=== PATIENT | male | born 1945 | race Caucasian/White ===

== ENCOUNTER → 2017-05-08 | Outpatient (CLI) | payer OTHER, MEDICARE ==
[~2017-05-08] MED LIST: ASCO500T3 PO; ASPI81TA28 PO; ATOR10TA82 PO; CARV12.52 PO; CETI10TA84 PO; Iron PO; OPTIRAY 320 IV PRN; OXYC-57 PO; THEO300T14 PO; WARF-246 PO; WARF5TAB90 PO
--- NOTE | 2017-05-08 09:27 | DIAGNOSTIC IMAGING REPORT ---
CT SOFT TISSUE NECK WITH CT DOSE: 350.83 mGy.cm CLINICAL HISTORY: HX OF BASE OF TONGUE CA TECHNIQUE: Helical images were acquired during intravenous administration of 92 cc of Optiray 320. COMPARISON STUDY: Outside study performed 07/31/2016 FINDINGS: There is pulmonary emphysema. No suspicious pulmonary apical nodules are visualized. No thyroid masses are visualized. No salivary gland masses are visualized. There are no pathologically enlarged cervical lymph nodes. No necrotic nodes are evident. There are no fluid collections suspicious for abscess. There is no evidence of airway compromise. There is asymmetry of the base the tongue. This is likely secondary to treated neoplasm. This remains unchanged from the preceding examination. There is moderate right maxillary sinus mucosal thickening. IMPRESSION: 1. Stable tongue base asymmetry. This may be secondary to treated neoplasm. The findings remain unchanged. A follow-up PET/CT scan might be of benefit to determine whether this tissue is metabolically active 2. No new or enlarging masses are visualized 3. No evidence of pathologic adenopathy. Electronically signed by: Tony Lora M.D. 05/08/2017 9:25 AM Dictated Date/Time: 05/08/2017 9:08 AM
== END | disposition home or self-care (01) ==
LOC: C.CTS 08:53
PROVIDERS: ATTEND Otolaryngology
DX: C01 Malignant neoplasm of base of tongue (principal)

== ENCOUNTER → 2017-05-15 | Outpatient (CLI) | payer OTHER, MEDICARE ==
[~2017-05-15] MED LIST changes: -ATOR10TA82 PO; +ATOR10TA88 PO; -OPTIRAY 320 IV PRN; -THEO300T14 PO
[2017-05-15 12:52] VITALS: BP 120/76; PULSE 89; TEMP 36.5; O2SAT 95
--- NOTE | 2017-05-15 15:52 | Radiation Oncology Follow-Up ---
Radiation Oncology Follow-Up Date of Visit May 15, 2017. (Jenn Salamanca PA-C) Reason For Visit Nine-month follow-up (Jenn Salamanca PA-C) Radiation Completion Date finished 09-07-2015 (Jenn Salamanca PA-C) Diagnosis (1) Cancer of base of tongue Status: Resolved Onset Date: 06/01/2015 Stage: lll Permanent Comment: STAGING: Oropharynx, right base of tongue, SCC, p16 negative , T2N1M0, stage III Status post completion of radiation therapy 09/07/2015 received 6996 cGy Failure to thrive post treatment feeding tube placed Course Plan Name [employer] Start Date Stop Date Elapsed Days # TX Daily Dose (cGy) Total Dose (cGy) C1- H&N VMAT 3-arcs 6X 07/21/2015 09/07/2015 49 33 212* 6996* Last Edited By: Cheko Chavez on Aug 16, 2016 14:13 (Jenn Salamanca PA-C) History of Present Illness Mr. Monzon is a 70-year-old male with a [id number]-[id number] smoking history who recently presented with some hoarseness of his throat discomfort in the right tongue. He was eventually referred to Dr. Aguayo who did an examination which revealed a mass at the right base of tongue extending to the right tonsil. He did perform a biopsy which confirmed squamous cell carcinoma. A CT neck was performed on 04/16/2015 which showed a 3.5 cm mass in the right base of tongue as well as a 1 cm right level II lymph node. The patient was subsequently referred to Dr. Baca at [facility]. Dr. Baca did take the patient to the operating room for direct laryngoscopy with multiple biopsies. On examination, Dr. Baca found submucosal nodule on the right base of tongue extending to the midline and laterally onto the tonsillar fossa fossa as well as extending to the right side of vallecula and also there was extension into the right oral tongue. 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 This procedure was performed on 06/01/2015. He did subsequently have a PET CT scan on 06/21/2015 which did show an intensely FDG avid mass at the right base of tongue involving the right pharynx and right soft palate as well as an avidly intense right level IIb lymph node. There was no evidence of metastatic disease on the PET/CT scan. The patient was subsequently referred for definitive chemoradiation therapy. The patient was seen by Dr. Diggs who plans to deliver cisplatinum chemotherapy. He received combined radiation and chemotherapy. Radiation was completed 2014. He received 6906 cGy. He unfortunately developed failure to thrive. He was admitted from 09/15/2015 to 09/18/2015. A PEG tube was placed. He steadily improved and this was then removed. (Jenn Salamanca PA-C) Interim History He is been doing well over the past 9 months. His appetite is good and weight is stable. He does continue to have difficulty with taste. He feels that he has minimal ability to taste foods. He is intolerant to any spicy foods. Catch -up, mustard, and tomato sauce caused burning of the tongue. He has xerostomia. This is mostly noted during the day. He does not have difficulty with saliva at night. He has seen Dr. Baca in follow-up. He had him complete a CT scan on 05/08/2017. This showed stable tongue-based asymmetry. This may be secondary to treated neoplasm. The findings remain unchanged. Follow-up PET/CT scan might be of benefit to determine whether this tissue is metabolically active. No new or enlarging masses are visualized. No evidence of pathologic adenopathy. He was seen and examined by Dr. Baca 2016 and no recurrence was noted on examination. (Jenn Salamanca PA-C) Allergies Coded Allergies: No Known Allergies (Unverified , 04/11/16) Home Medications Scheduled Aspirin (Aspirin Ec), 81 MG PO QAM Atorvastatin (Lipitor), 10 MG PO NOON Carvedilol (Coreg), 12.5 TAB PO BID Warfarin Sodium (Warfarin Sodium), 10 MG PO 5XWK Warfarin Sodium (Coumadin), 1 TAB PO 2XWK Scheduled PRN Cetirizine (Zyrtec), 10 MG PO DAILY PRN for Nasal Congestion Review of Systems Gastrointestinal: Symptoms: WNL GI Comments: Gets full faster with smaller amounts of foods; Oral: Symptoms: Scant Saliva/Dry Mouth Other Oral Symptoms: "has trouble eating certain meats and breads " Respiratory: Symptoms: WNL Other Respiratory: Frequent throat clearing at times d/t excessive saliva; Urinary: Symptoms: Nocturia Comments: nocturia times 1 Skin: Symptoms: No Problems (Jenn Salamanca PA-C) Physical Exam Vital Signs Date Time Temp Pulse Resp B/P (MAP) Pulse Ox O2 Delivery O2 Flow Rate FiO2 05/15/17 12:52 36.5 89 18 120/76 95 Pain: Pain Onset: 1 - 2 weeks Side: Bilateral Pain Location: gums Patient Pain Scale: 0 - 10 Initial Pain Intensity: 0.0 Pain Description: Soreness Additional Comments: gets worse in the afternoon Fatigue: None General Appearance: no apparent distress Eyes: normal inspection, EOMI ENT: normal ENT inspection, hearing grossly normal, pharynx normal, + pertinent finding (there are no visible lesions of the tongue. There are no changes of the base of the tongue or buccal mucosa. Mild trismus.) Neck: no adenopathy, thyroid normal Respiratory/Chest: lungs clear, no respiratory distress, no accessory muscle use Cardiovascular: regular rate, rhythm, no gallop, no murmur Extremities: no pedal edema Neurologic/Psychiatric: no motor/sensory deficits, alert, normal mood/affect Skin: warm/dry (Jenn Salamanca PA-C) Additional Studies As reviewed above. (Jenn Salamanca PA-C) Assessment & Plan Plan: Patient was seen and examined by Dr. Chavez. No continue follow-up with his primary care physician, Dr. Baca, and medical oncology. He is going to be seeing Dr. Sears on May 28. He does have a port. He plans to discuss having this removed with Dr. Sears. He'll be seeing Dr. Baca in July. We asked him to return to our office in October. He may call if he has any questions or concerns in the interim. (Jenn Salamanca PA-C) I agree with note created by Jenn Salamanca PA-C. I reviewed the patient's chart and information with her. I have examined and evaluated the patient. I reviewed relevant clinical information and answered the patient's and/or family' s questions. (Veeral. Chavez MD) Total Time In Follow-Up I spent 20 minutes speaking to the patient and performing examination. He has been 15 minutes reviewing information in completing this note. (Jenn Salamanca PA-C) I spent 15 minutes examining and counseling the patient. (Veeral. Chavez MD) Copy To Robert Baca M.D.; Abimael Sears MD; Gerry Guaman D.O.
== END | disposition home or self-care (01) ==
LOC: C.ONC 12:36
PROVIDERS: ATTEND Physician Assistant Medical
DX: Z08 Encounter for follow-up examination after completed treatment for malignant neoplasm (principal); Z92.3 Personal history of irradiation; Z85.810 Personal history of malignant neoplasm of tongue

== ENCOUNTER → 2017-06-25 | Day surgery (SDC) | payer OTHER, MEDICARE ==
[~2017-06-25] VITALS: Ht 172.7 cm; Wt 79.5 kg
[~2017-06-25] MED LIST changes: -ASCO500T3 PO; +CEFAZOLIN 1000MG/55 ML D5W IV SCH; +FENTANYL CITRATE INJ 50 MCG/1 ML 2 ML VIAL IV ONE; +FENTANYL CITRATE INJ 50 MCG/1 ML 2 ML VIAL ONE; -Iron PO; +LIDOCAINE HCL 1% 20 ML VIAL INJ ONE; +LIDOCAINE HCL 1% 20 ML VIAL ONE; +MIDAZOLAM HCL 1 MG/ML 2ML VIAL IV ONE; +MIDAZOLAM HCL 1 MG/ML 2ML VIAL ONE; +SODIUM CHLORIDE 0.9% 1000ML IV SCH
[2017-06-25 06:34] VITALS: BP 139/81; PULSE 83; TEMP 36.7; O2SAT 97; Ht 172.7 cm; Wt 79.5 kg
[2017-06-25 06:50] LABS: INR 3.2 (0.9-1.1); PARTIAL THROMBOPLASTIN RATIO 1.5; PROTHROMBIN TIME (PATIENT) 35.4 SECONDS (9.0-12.0)
[2017-06-25 07:37] VITALS: BP 139/81; PULSE 83; TEMP 36.7; O2SAT 97
--- NOTE | 2017-06-25 07:39 | History and Physical ---
History & Physical Date of Service Jun 25, 2017. History & Physical Chief Complaint: Tongue cancer, post port insertion History of Present Illness The patient is a 70 year old male with tongue cancer who had an insertion of an infusaport for chemotherapy. He no longer needs the port and is here for removal Allergies Coded Allergies: No Known Allergies (Unverified , 07/20/15) Surgical / Medical History Hx Cardiac Surgery: Yes (Heart Valve Replacement) Hx Abdominal Surgery: No Hx Cancer Surgery: No Hx Thoracic Surgery: No Hx Orthopedic: No Hx Urinary Tract Surgery: No HX Other Surgery: Yes (T&A) Past Medical/Surgical History: Heart Disease Social History Smoking Status: Former Smoker Hx Tobacco Use In Past Year?: No (Quit 2007;1 PPD x 40yrs) Hx Alcohol Use - Type & Amnt: Yes (3-4 beers/day;quit 2007 except for social drinking) Hx Substance Use -Type & Amnt: No Review of Systems Review of Systems Constitutional: No chills, No diaphoresis, No fever, No malaise, No weakness, No weight gain, No weight loss, No sweats, No fatigue, No problem reported ENMT: No dental pain, No loss of hearing, No epistaxis, No ear discharge, No ear pain, No gum swelling, No mouth pain, No mouth swelling, No nasal congestion , No nasal pain, No rhinorrhea, No stridor, No tinnitus, No sore throat, No throat swelling, No problem reported Respiratory: No cough, No cyanosis, No HARRISON, No hemoptysis, No orthopnea, No PND , No short of breath, No sputum production, No stridor, No wheezing, No dyspnea , No problem reported Cardiovascular: No chest pain, No chest tightness, No chest pressure, No palpitations, No syncope, No diaphoresis, No edema, No intermittent claudication , No orthopnea, No cyanosis, No mumur, No lightheadedness, No paroxysmal nocturnal dyspnea, No problem reported Gastrointestinal: No abdominal pain, No constipation, No diarrhea, No nausea, No vomiting, No anorexia, No appetite changes, No belching, No flatulence, No food intolerance, No hematemesis, No hemorrhoids, No hematochezia, No stool changes, No heartburn, No indigestion, No dysphagia, No rectal bleeding, No problem reported Genitourinary - Male: No impotence, No penile discharge, No penile itching, No rash, No testicular pain, No testicular swelling, No hematuria, No difficulty urinating, No problem reported Musculoskeletal: No back pain, No gout, No joint pain, No joint swelling, No muscle pain, No muscle stiffness, No muscle weakness, No neck pain, No problem reported Neurologic: No dizziness, No weakness, No headache, No lethargy, No numbness, No paresthesia, No pre-existing deficit, No seizures, No tics, No tingling, No tremors, No vertigo, No memory loss, No LOC, No problem reported Psychiatric: No anxiety, No alcohol abuse, No auditory hallucinations, No depression, No drug abuse, No homicidal ideation, No mood changes, No suicidal ideation, No visual hallucinations, No problem reported Physical Exam: Constitutional: General Apperance: heathly-appearing, well-nourished, well-developed Level of Distress: NAD Ambulation: ambulating normally Psychiatric: Mental Status: active & alert, normal mood, normal affect Orientation: oriented except where noted, to time, to place, to person Memory: recent memory normal, remote memory normal Lungs: Auscultation: breath sounds normal Cardiovascular: Heart Auscultation: RRR Peripheral Pulses: Radial Pulse: normal on the left, normal on the right Femoral Pulse: normal on the left, normal on the right Abdomen: Inspection & Palpation: soft Extremities: Upper Right: no cyanosis, no edema, no varicosities, no palpable cord, no clubbing, no ulcers, no mottling Upper Left: no cyanosis, no edema, no varicosities, no palpable cord, no clubbing, no ulcers, no mottling Lower Right: no cyanosis, no edema, no varicosities, no palpable cord, no clubbing, no ulcers, no mottling Lower Left: no cyanosis, no edema, no varicosities, no palpable cord, no clubbing, no ulcers, no mottling Neurologic: Cranial Nerves: grossly intact Sensation: grossly intact Imp: Tongue cancer and post port insertion Plan: Patient admitted for removal of infusaport. I have discussed the risks options and benefits of the procedure with the patient. The patient understands the risks options and benefits and agrees to the procedure.
--- NOTE | 2017-06-25 07:39 | Procedure Note ---
Pre-Mod Sedation Assessment General Date of Moderate Sedation: Jun 25, 2017. Vital Signs: Vital Signs Past 12 Hours Date Time Temp Pulse Resp B/P (MAP) Pulse Ox O2 Delivery O2 Flow Rate FiO2 06/25/17 06:34 36.7 83 18 139/81 (100) 97 Room Air Pre-Sedation Airway Assessment Oral Cavity: Dentures Smoking Status: Never Smoker Mallampati Classification: Class II ASA Classification: Class II Notes The planned sedation has been discussed with the patient and consent obtained. I have identified the patient, determined the appropriateness of sedation and have assessed the patient immediately prior to the procedure. All medicine(s) and interventions are by my order.
--- NOTE | 2017-06-25 08:40 | [facility] Post Operative Brief Note ---
Immediate Operative Summary Operative Date Jun 25, 2017. Pre-Operative Diagnosis Tongue cancer and post port insertion Post-Operative Diagnosis Same Procedure(s) Performed Infusaport Removal Conscious sedation [id number] Surgeon Lizett Operations Support Coordinator Surgeon(s) None Estimated Blood Loss 3 Findings port and catheter removed Specimens a; Infusaport Anesthesia Local with sedation Complication(s) None Disposition
--- NOTE | 2017-06-25 08:42 | Discharge Instructions ---
Discharge Instructions Date of Service Jun 25, 2017. Visit Reason for Visit: Mouth Cancer Discharge Discharge Diagnosis / Problem: Post infusaport insertion Discharge Goals Goal(s): Therapeutic intervention Activity Recommendations Activity Limitations: resume your previous activity Lifting Limitations: none Exercise/Sports Limitations: none May Resume Sexual Activity: when tolerated Shower/Bathe: tomorrow Anesthesia . Post Anesthesia Instructions: If you have had General Anesthesia or IV Sedation: * Do not drive today. * Resume driving when surgeon permits. * Do not make important decisions or sign legal documents today. * Call surgeon for: 1. Temperature elevations greater than 101 degrees F. 2. Uncontrollable pain. 3. Excessive bleeding. 4. Persistent nausea and vomiting. 5. Medication intolerance (nausea, vomiting or rash). * For nausea and vomiting use only clear liquids such as: tea, soda, bouillon until nausea subsides, then gradually increase diet as tolerated. * If you have any concerns or questions, call your surgeon's office. If physician is unavailable and it is an emergency, call 911 or go to the nearest emergency room. . Instructions / Follow-Up Instructions / Follow-Up Call [phone] to schedule a follow up appointment if one not already scheduled. SPECIAL CARE INSTRUCTIONS: Medications: * Continue to take your medications as directed. If you have been given a prescription for Plavix, please fill it immediately and take as directed. Incision Care: * Your puncture site may have some bruising and minor swelling for about one week. * You will have a small dressing covering your puncture site. You may remove the dressing after 24 hours and shower. You may let the warm soapy water run over it, but be sure to dry the puncture site well and keep it dry. * DO NOT IMMERSE THE INCISION IN A TUB/POOL/etc. UNTIL HEALED. * Puncture sites should be kept covered with a band-aid until it begins to heal. Restrictions: * Depending on whether you leg or arm was punctured to access the arteries, you will be required to lay flat, hold your arm still, or both, for about 4 hours after the procedure to prevent bleeding. * Limit your activity for the first 48 hours. You may walk and go up and down steps. Avoid excessive bending or movement at the puncture site. Possible Complications: * Excessive Swelling - after blood flow is improved you may notice increased swelling in the lower legs. This is a normal response. This usually depends on the amount of blockages in the leg, how long they have been there prior to your procedure and how much blood flow was restored. Elevating your legs will help to improve this. Please notify our office ([phone] ) if the swelling does not go away after lying in bed overnight. * Infection/Drainage/Bleeding - Drainage or bleeding from the puncture site should be minimal. If you have excessive bleeding or drainage, call our office ([phone]) right away. * Pain - You may experience some mild pain or soreness at your puncture site. If your pain does not improve, please contact our office ([phone]). Call your doctor and seek emergent treatment if you develop: * Temperature above 101 degrees * Any fever or chills * Any redness or purulent drainage from the puncture site * Any new dusky/blue colored toes or feet with coolness or sharp or aching pain. SKIN IRRITATION: * You may experience some redness and/or swelling in the area where radiation was administered. If any skin irritation occurs, please contact your family physician. FOLLOW UP VISIT: Keep any scheduled doctor appointments. Diet Recommendations Recommended Home Diet: resume previous diet Procedures Procedures Performed: Infusaport Removal Pending Studies Studies pending at discharge: no Medical Emergencies . Who to Call and When: Medical Emergencies: If at any time you feel your situation is an emergency, please call 911 immediately. . Non-Emergent Contact Non-Emergency issues call your: Surgeon . . "Provider Documentation" section prepared by Rojelio Phoenix. .
--- NOTE | 2017-06-25 08:49 | [facility] Operative Report ---
Operative Report Operative Date Jun 25, 2017. Pre-Operative Diagnosis Tongue cancer and post port insertion Post-Operative Diagnosis Same Procedure(s) Performed Infusaport Removal Conscious sedation [phone] Surgeon Lizett Lead Manufacturing Engineer Surgeon(s) None Estimated Blood Loss 3 Findings catheter and port removed Specimens a; Infusaport Anesthesia Local with sedation Complication(s) None Disposition Indications This patient is a 72-year-old white male who had a left internal jugular vein [id number] placed 2 years prior to his for chemotherapy for tongue carcinoma. He no longer needs the port. He is here for removal. He understands the risks options and benefits and agrees to go ahead with this procedure. Description of Procedure Patient was taken to the angio suite and placed in the supine position. The left side of the neck and chest wall were prepped and draped in a sterile manner. Local anesthesia was then administered to the appropriate areas of the neck and chest wall. A transverse incision was made below the clavicle on the chest wall in the line of the old incision. Bleeding was controlled using cautery. Using sharp and blunt dissection the cuff and fibrin sheath were dissected free and removed. The catheter slid out easily. Adequate hemostasis was then obtained. Once adequate hemostasis was noted the wound was then closed. The incision was closed using a 3-0 Vicryl suture for the subcutaneous layer and a 4-0 Vicryl subcuticular stitch for the skin layer. Dermabond was used for a dressing on the incision. Pressure was applied to the catheter site over the internal jugular vein. The patient left the angio suite in good condition and tolerated the procedure well. I attest to the content of the Intraoperative Record and any orders documented therein. Any exceptions are noted below.
--- NOTE | 2017-06-25 08:49 | Procedure Note ---
Post-Moderate Sedation Plan General Date of Moderate Sedation Jun 25, 2017. Vital Signs: Vital Signs Past 12 Hours Date Time Temp Pulse Resp B/P (MAP) Pulse Ox O2 Delivery O2 Flow Rate FiO2 06/25/17 08:38 82 18 143/85 97 Room Air 06/25/17 07:37 36.7 83 18 139/81 97 Room Air 06/25/17 06:34 36.7 83 18 139/81 (100) 97 Room Air Review - Discharge Plan Post Moderate Sedation Plan: On clinical assessment, the patient appears to have tolerated the conscious sedation without complications. Patient is recovering as anticipated. Patient will continue to be monitored by nursing and may be discharged when conscious sedation discharge criteria are met.
[2017-06-25 09:00] VITALS: BP 120/65; PULSE 86; TEMP 36.7; O2SAT 98
[2017-06-25 09:30] VITALS: BP 129/72; PULSE 80; TEMP 36.5; O2SAT 97
== END | disposition home or self-care (01) ==
LOC: C.ACU 05:56
PROVIDERS: ATTEND Surgery Vascular Surgery
DX: Z95.828 Presence of other vascular implants and grafts (principal); C02.9 Malignant neoplasm of tongue, unspecified; Z95.2 Presence of prosthetic heart valve; Z87.891 Personal history of nicotine dependence

== ENCOUNTER → 2017-10-24 | Outpatient (CLI) | payer OTHER, MEDICARE ==
[2017-05-15 12:52] VITALS: BP 120/76; PULSE 89
[~2017-10-24] MED LIST changes: +ATOR10TA82 PO; -ATOR10TA88 PO; -CEFAZOLIN 1000MG/55 ML D5W IV SCH; -FENTANYL CITRATE INJ 50 MCG/1 ML 2 ML VIAL IV ONE; -FENTANYL CITRATE INJ 50 MCG/1 ML 2 ML VIAL ONE; -LIDOCAINE HCL 1% 20 ML VIAL INJ ONE; -LIDOCAINE HCL 1% 20 ML VIAL ONE; -MIDAZOLAM HCL 1 MG/ML 2ML VIAL IV ONE; -MIDAZOLAM HCL 1 MG/ML 2ML VIAL ONE; -SODIUM CHLORIDE 0.9% 1000ML IV SCH; +THEO300T14 PO
[2017-10-24 13:00] VITALS: BP 105/75; PULSE 72; TEMP 36.8; O2SAT 99
--- NOTE | 2017-10-24 15:09 | Radiation Oncology Follow-Up ---
Radiation Oncology Follow-Up Date of Visit Oct 24, 2017. Reason For Visit Six-month follow-up Radiation Completion Date 09/07/15 Diagnosis (1) Cancer of base of tongue Status: Resolved Onset Date: 06/01/2015 Permanent Comment: STAGING: Oropharynx, right base of tongue, SCC, p16 negative , T2N1M0, stage III Status post completion of radiation therapy 09/07/2015 received 6996 cGy Failure to thrive post treatment feeding tube placed Course Plan Name [employer] Start Date Stop Date Elapsed Days # TX Daily Dose (cGy) Total Dose (cGy) C1- H&N VMAT 3-arcs 6X 07/21/2015 09/07/2015 49 33 212* 6996* Last Edited By: Cheko Chavez on Aug 16, 2016 14:13 History of Present Illness Mr. Monzon has a 58-yueh-yeiv smoking history who presented with some hoarseness of his throat discomfort in the right tongue. He was eventually referred to Dr. Aguayo who did an examination which revealed a mass at the right base of tongue extending to the right tonsil. He did perform a biopsy which confirmed squamous cell carcinoma. A CT neck was performed on 04/16/2015 which showed a 3.5 cm mass in the right base of tongue as well as a 1 cm right level II lymph node. The patient was subsequently referred to Dr. Baca at [place]. Dr. Baca did take the patient to the operating room for direct laryngoscopy with multiple biopsies. On examination, Dr. Baca found submucosal nodule on the right base of tongue extending to the midline and laterally onto the tonsillar fossa fossa as well as extending to the right side of vallecula and also there was extension into the right oral tongue. 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 This procedure was performed on 06/01/2015. He did subsequently have a PET CT scan on 06/21/2015 which did show an intensely FDG avid mass at the right base of tongue involving the right pharynx and right soft palate as well as an avidly intense right level IIb lymph node. There was no evidence of metastatic disease on the PET/CT scan. The patient was subsequently referred for definitive chemoradiation therapy. The patient was seen by Dr. Diggs who plans to deliver cisplatinum chemotherapy. He received combined radiation and chemotherapy. Radiation was completed 2014. He received 6906 cGy. He unfortunately developed failure to thrive. He was admitted from 09/15/2015 to 09/18/2015. A PEG tube was placed. He steadily improved and this was then removed Interim History His been doing well over the past 6 months. He is noted no changes to his mouth , throat, or neck. He continues to have difficulty with taste. He was seen at a smell and taste clinic. He was prescribed theophylline. He takes Alf-24 150 mg daily. He is been on the medication for just a short period of time. He is not sure if this will help but is willing to try. He does continue to have intolerance to spicy foods. This causes a burning sensation of the tongue. He is been seen in follow-up. He is also been followed in medical oncology. He has not had any new scanning since the last visit. He did state that he plans to have his follow-up CT scans in [place]. He'll have these the same day that he has follow-up appointment with Dr. Baca. 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 He has been using Biotene lozenges. He also uses humidification in the house. Allergies Coded Allergies: No Known Allergies (Unverified , 06/25/17) Home Medications Scheduled Aspirin (Aspirin Ec), 81 MG PO QAM Atorvastatin (Lipitor), 10 MG PO NOON Carvedilol (Coreg), 12.5 TAB PO BID Theophylline Ext Rel (Alf-Dur Ext Rel), 150 MG PO DAILY Warfarin Sodium (Warfarin Sodium), 10 MG PO 5XWK Warfarin Sodium (Coumadin), 1 TAB PO 2XWK Scheduled PRN Cetirizine (Zyrtec), 10 MG PO DAILY PRN for Nasal Congestion Review of Systems Gastrointestinal: Symptoms: WNL GI Comments: Gets full faster with smaller amounts of foods; Oral: Symptoms: Scant Saliva/Dry Mouth Other Oral Symptoms: Intermittent dry mouth;Chews food well, but eats what he wants; Respiratory: Symptoms: WNL Other Respiratory: Frequent throat clearing at times d/t excessive saliva; Urinary: Symptoms: WNL Comments: nocturia times 1 Skin: Symptoms: No Problems Physical Exam Vital Signs Date Time Temp Pulse Resp B/P (MAP) Pulse Ox O2 Delivery O2 Flow Rate FiO2 10/24/17 13:00 36.8 72 16 105/75 99 Fatigue: None General Appearance: no apparent distress Eyes: normal inspection, EOMI ENT: normal ENT inspection, hearing grossly normal, TMs normal, pharynx normal , + pertinent finding (there are no visible or palpable lesions of the tongue, floor of the mouth, or buccal mucosa.) Neck: supple, no adenopathy, thyroid normal Respiratory/Chest: lungs clear, no respiratory distress, no accessory muscle use Cardiovascular: regular rate, rhythm, no gallop, + systolic murmur (click murmur heard best at the mitral area) Extremities: no pedal edema Neurologic/Psychiatric: no motor/sensory deficits, alert, normal mood/affect Skin: warm/dry Pain Management Patient Reports Pain: No Side: Bilateral Pain Location: None Patient Preferred Pain Scale: 0 - 10 Initial Pain Intensity: 0.0 Pain Management Plan He has no pain therefore requires no pain management. Laboratory Laboratory Results: not applicable Pathology Pathology Results: not applicable Imaging Imaging Studies: not applicable Assessment & Plan Plan: Continue regular follow-up with ENT and medical oncology. He is trying to schedule his appointments so that he is seen every 4-6 months. He has an appointment with Dr. Baca in April. We scheduled an appointment for him to follow-up with us in 1 year. He'll have a recheck CT scans in [place]. He may call our office if he has any questions or concerns. Total Time In Follow-Up I spent 20 minutes speaking to the patient performing examination. I spent 15 minutes reviewing information in completing this note. Copy To Robert Baca M.D.; Abimael Sears MD; Gerry Guaman D.O.
== END | disposition home or self-care (01) ==
LOC: C.ONC 12:49
PROVIDERS: ATTEND Physician Assistant Medical
DX: Z08 Encounter for follow-up examination after completed treatment for malignant neoplasm (principal); Z92.3 Personal history of irradiation; Z85.810 Personal history of malignant neoplasm of tongue